=== PATIENT | female | born 1985 | race Caucasian/White ===

== ENCOUNTER 2019-09-10 13:11 | Emergency (ER) | payer OTHER ==
[2019-09-10 13:16] VITALS: BMI 23.8
--- NOTE | 2019-09-10 14:54 | PDOC ---
History of Present Illness - General Chief Complaint: Blood/Body Fluid Exposure SJR Stated Complaint: NEEDLE STICK/EMPLOYEE Time Seen by Provider: 09/10/19 13:29 History Source: Patient Exam Limitations: No Limitations Past History - Travel Traveled outside of the country in the last 30 days: No Close contact w/someone who was outside of country & ill: No - Past Medical History Allergies/Adverse Reactions: Allergies Allergy/AdvReac Type Severity Reaction Status Date / Time No Known Allergies Allergy Verified 09/10/19 13:16 COPD: No Thyroid Disease: Yes (HYPO) - Psycho Social/Smoking Cessation Hx Smoking History: Never smoked Review of Systems - Review of Systems Able to Perform ROS?: Yes Comments:: 09/10/19 17:24 CONSTITUTIONAL: Absent: fever, chills, diaphoresis, generalized weakness, malaise, loss of appetite SKIN: Present: Needlestick injury absent: rash, itching, pallor NEUROLOGIC: Absent: headache, focal weakness or paresthesias, dizziness, unsteady gait, seizure, mental status changes, bladder or bowel incontinence PSYCHIATRIC: Absent: anxiety, depression, suicidal or homicidal ideation, hallucinations. Is the patient limited Spanish proficient: No *Physical Exam - Vital Signs Last Vital Signs Temp Pulse Resp BP Pulse Ox 100 H 18 110/54 L 99 09/10/19 13:13 09/10/19 13:13 09/10/19 13:13 09/10/19 13:13 - Physical Exam Comments: 09/10/19 17:25 GENERAL: The patient is awake, alert, and fully oriented, in no acute distress. HEAD: Normal with no signs of trauma. EYES: Pupils equal, round and reactive to light, extraocular movements intact, sclera anicteric, conjunctiva clear. EXTREMITIES: Normal range of motion, no edema. NEUROLOGICAL: Normal speech, normal gait. PSYCH: Normal mood, normal affect. SKIN: Sub-0.5 cm abrasion to the right lateral thumb. Warm, Dry, normal turgor , no rashes or lesions noted. ED Treatment Course - LABORATORY CBC & Chemistry Diagram: 09/10/19 15:02 09/10/19 15:02 Medical Decision Making - Medical Decision Making 09/10/19 17:26 The patient is a 34-year-old female, currently 33 weeks , presents to the ER today after a needlestick injury at work. She works as an OR scrub nurse. She states that while 1 of the doctors was injecting Marcaine into the patient she got stabbed with a needle. She believes there was patient's blood in the needle. She was able to squeeze out the blood just after the stick. She washed it out up in the OR. She presents to the ER today for baseline lab work. She also states that the source patient had testing done as well. A/P: Needlestick injury On exam 0.5 subcentimeter wound present on the right lateral thumb. Wound was washed with surgical scrub Tetanus is up-to-date Source patient tested negative for HIV today. Defer antivirals as the patient is and source patient is negative. Patient to go to L&D for monitoring Discharge home I discussed the physical exam findings, ancillary test results and final diagnoses with the patient. I answered all of the patient's questions. The patient was satisfied with the care received and felt comfortable with the discharge plan and treatment plan. The Patient agrees to follow up with the primary care physician/specialist within 24-72 hours. Return precautions were given. Discharge - Discharge Information Problems reviewed: Yes Clinical Impression/Diagnosis: Needle stick injury Condition: Stable Disposition: HOME - Admission No - Follow up/Referral Referrals: Tuyet Jang MD [Primary Care Provider] - - Patient Discharge Instructions Patient Printed Discharge Instructions: How to Handle Body Fluid Exposure -- Healthcare Worker Additional Instructions: You were evaluated for blood exposure after a needlestick. The source patient was negative for HIV. Your blood work was also drawn at baseline. Keep the finger clean and dry. Please follow-up with your primary care provider for further testing. Return to the ER for any new or worsening symptoms. LABOR AND DELIVERY DISCHARGE TO HOME, KEEP ALL SCHEDULED CARE APPOINTMENTS, RETURN TO LABOR AND DELIVERY IF YOU ARE HAVING REGULAR CONTRACTIONS, YOU BREAK YOUR WATER , YOU HAVE PERIOD LIKE VAGINAL BLEEDING OR YOU ARE NOT FEELING YOUR BABY MOVE. BE SURE TO STAY HYDRATED BY DRINKING 8-10 GLASSES OF WATER EACH DAY. IF YOU HAVE ANY QUESTIONS OR CONCERNS YOU CAN CONTACT YOUR OFFICE OR LABOR AND DELIVERY AT [phone]. - Post Discharge Activity Work/Back to School Note: Back to Work
[2019-09-10 15:15] LABS: BASO % 0.2 % (0-2.0); EOS % 0.8 % (0-4.5); HEMATOCRIT 27.3 % (32.4-45.2); HEMOGLOBIN 9.2 GM/dL (10.7-15.3); LYMPH % 17.6 % (8-40); MCH 27.9 pg (25.7-33.7); MCHC 33.6 g/dl (32.0-36.0); MEAN CELL VOLUME 83.1 fl (80-96); MEAN PLT VOLUME 10.1 fl (7.5-11.1); MONO % 6.9 % (3.8-10.2); NEUT % 74.5 % (42.8-82.8); PLATELET COUNT 184 K/MM3 (134-434); RBC 3.29 M/mm3 (3.60-5.2); RDW 14.5 % (11.6-15.6); WHITE BLOOD COUNT 7.2 K/mm3 (4.0-10.0)
[2019-09-10 15:48] LABS: ALBUMIN 2.7 g/dl (3.4-5.0); BILIRUBIN,TOTAL 0.2 mg/dL (0.2-1); BLOOD UREA NITROGEN 7.1 mg/dL (7-18); CALCIUM 8.5 mg/dL (8.5-10.1); CREATININE 0.5 mg/dL (0.55-1.3); TOT PROT 6.4 g/dl (6.4-8.2)
[2019-09-10 15:54] VITALS: BP 100/63; PULSE 75; TEMP 97.9
== END 2019-09-10 16:15 | disposition home or self-care (01) ==
LOC: JER 13:11 → JERFT 13:11 → JER 16:15
DX: O99.89 Other specified diseases and conditions complicating pregnancy, childbirth and the puerperium (principal); Z77.21 Contact with and (suspected) exposure to potentially hazardous body fluids; S60.311A Abrasion of right thumb, initial encounter; W46.1XXA Contact with contaminated hypodermic needle, initial encounter; Y93.89 Activity, other specified; Y92.234 Operating room of hospital as the place of occurrence of the external cause; Y99.0 Civilian activity done for income or pay; Z3A.33 33 weeks gestation of pregnancy
CPT/HCPCS: 36415; 80053; 85025; 86317; 86704; 86706; 86803; 87340; 87389; 99282-25

== ENCOUNTER 2020-03-25 14:16 | Emergency (ER) | payer OTHER ==
[2020-03-25 14:35] VITALS: BP 123/73; PULSE 77; TEMP 98.1; BMI 20.5
[2020-03-25 14:55] LABS: BASO % 1.4 % (0-2.0); EOS % 2.6 % (0-4.5); HEMATOCRIT 38.3 % (32.4-45.2); HEMOGLOBIN 12.4 GM/dL (10.7-15.3); LYMPH % 35.7 % (8-40); MCH 27.3 pg (25.7-33.7); MCHC 32.5 g/dl (32.0-36.0); MEAN PLT VOLUME 11.1 fl (7.5-11.1); MONO % 6.8 % (3.8-10.2); NEUT % 53.5 % (42.8-82.8); PLATELET COUNT 203 K/MM3 (134-434); RBC 4.56 M/mm3 (3.60-5.2); RDW 15.2 % (11.6-15.6); WHITE BLOOD COUNT 6.2 K/mm3 (4.0-10.0)
[2020-03-25 15:26] LABS: ALBUMIN 4.2 g/dl (3.4-5.0); BILIRUBIN,TOTAL 0.3 mg/dL (0.2-1); BLOOD UREA NITROGEN 12.6 mg/dL (7-18); CREATININE 0.8 mg/dL (0.55-1.3); POTASSIUM 4.1 mmol/L (3.5-5.1)
[2020-03-25 16:14] LABS: HIV INTERPRETATION NEGATIVE (NEGATIVE)
== END 2020-03-25 16:09 | disposition home or self-care (01) ==
LOC: JER 14:16
DX: S60.941A Unspecified superficial injury of left index finger, initial encounter (principal); W46.1XXA Contact with contaminated hypodermic needle, initial encounter
CPT/HCPCS: 36415; 80053; 85025; 86317; 86704; 86803; 87340; 87389; 99283-25

== ENCOUNTER 2022-10-04 10:59 | Emergency (ER) | payer OTHER ==
[2022-10-04 11:19] VITALS: BP 132/65; PULSE 61; RESP 18; TEMP 97.9; BMI 20.2
[2022-10-04 11:54] LABS: HEMATOCRIT 39.7 % (32.4-45.2); HEMOGLOBIN 13.4 G/dL (10.7-15.3); MCH 28.7 pg (25.7-33.7); MCHC 33.6 g/dl (32.0-36.0); MEAN CELL VOLUME 85.3 fl (80-96); MEAN PLT VOLUME 9.9 fl (7.5-11.1); PLATELET COUNT 207.4 10^3/uL (134-434); RBC 4.65 10^6/uL (3.60-5.2); RDW 14.8 % (11.6-15.6); WHITE BLOOD COUNT 6.1 10^3/uL (4.0-10.8)
[2022-10-04 11:56] LABS: ALBUMIN 4.2 g/dl (3.4-5.0); CREATININE 0.7 mg/dl (0.55-1.3)
[2022-10-04 11:59] LABS: BILIRUBIN,TOTAL 0.6 mg/dl (0.2-1); PHOSPHOROUS 3.4 mg/dl (2.5-4.9); TOT PROT 7.6 g/dl (6.4-8.2); URIC ACID 3.9 mg/dl (2.6-7.2)
[2022-10-04 15:31] LABS: HIV INTERPRETATION NEGATIVE (NEGATIVE)
== END 2022-10-04 11:42 | disposition home or self-care (01) ==
LOC: FER 10:59
DX: S61.431A Puncture wound without foreign body of right hand, initial encounter (principal); W46.1XXA Contact with contaminated hypodermic needle, initial encounter
CPT/HCPCS: 36415; 80053; 82465; 82977; 83615; 84100; 84478; 84550; 85025; 86704; 86803; 87340; 87389; 87517; 99283-25